=== PATIENT | male | born 1990 | race Caucasian/White ===

== ENCOUNTER 2023-09-08 03:32 | Emergency (ER) | payer OTHER ==
[2023-09-08] MEDS ORDERED: Ketorolac Tromethamine 10 MG TAB ONE (04:12)
== END 2023-09-08 04:16 | disposition home or self-care (01) ==
LOC: MADERS 03:32
DX: S83.92XA Sprain of unspecified site of left knee, initial encounter (principal); F17.290 Nicotine dependence, other tobacco product, uncomplicated; W01.0XXA Fall on same level from slipping, tripping and stumbling without subsequent striking against object, initial encounter